=== PATIENT | male | born 1960 | race Two or more races ===

== ENCOUNTER 2019-10-24 13:38 | Inpatient (IN) | payer OTHER ==
[~2019-10-24] VITALS: Ht 170.2 cm; Wt 110.0 kg
[2019-10-24] MEDS ORDERED: ASPirin 81 mg TAB PO ONE (14:00)
[2019-10-24] MEDS ORDERED: AMIODARONE HCL 150 MG in D5W 5% 100 ML IV ONE (14:30)
[2019-10-24] MEDS ORDERED: AMIODARONE 450mg/250ml AE 250 ML IV SCH ×2 (15:00→21:00)
[2019-10-24 15:10] LABS: Basophils # (auto) 0.1 10 ^3/uL (0-0.2); Basophils % (auto) 1.2 % (0.0-2.0); Eosinophils # (auto) 0.3 10 ^3/uL (0-0.8); Eosinophils % (auto) 2.7 % (0.0-7.0); Hematocrit 47.6 % (41.0-53.0); Hemoglobin 16.3 g/dL (13.5-17.5); Lymphocytes # (auto) 2.7 10 ^3/uL (0.4-5.4); Lymphocytes % (auto) 29.1 % (10.0-50.0); Mean Corpuscular Hemoglobin 32.1 pg (28.0-32.0); Mean Corpuscular Hgb Conc. 34.1 g/dL (32.0-36.0); Mean Corpuscular Volume 93.9 fL (80.0-100.0); Monocytes # (auto) 0.6 10 ^3/uL (0-1.3); Monocytes % (auto) 6.5 % (0.0-12.0); Neutrophils # (auto) 5.7 10 ^3/uL (1.6-8.6); Neutrophils % (auto) 60.5 % (37.0-80.0); Nucleated Red Blood Cells % 0.1 %; Platelet Count (auto) 201 10^3/uL (140-450); Red Blood Cells 5.07 10^6/uL (4.5-5.90); Red Cell Distribution Width 13.6 % (11.8-14.3); White Blood Cell 9.4 10^3/uL (4.4-10.8)
[2019-10-24 15:25] LABS: Albumin 3.8 g/dL (3.4-5.0); Anion Gap 6 (5-15); Blood Urea Nitrogen 18 mg/dL (7-18); Calcium 8.7 mg/dL (8.5-10.1); Carbon Dioxide 24 mmol/L (21-32); Chloride 109 mmol/L (98-107); Glucose 105 mg/dL (74-106); Magnesium 2.3 mg/dL (1.6-2.6); Potassium 3.7 mmol/L (3.5-5.1); Sodium 139 mmol/L (136-145)
[2019-10-24 15:27] LABS: INR 1.07 (0.9-1.15)
[2019-10-24 15:31] LABS: Alanine Aminotransferase 42 U/L (16-61); Alkaline Phosphatase 61 U/L (45-117); Aspartate Aminotransferase 29 U/L (15-37); BUN/Creatinine Ratio 20.9; Bilirubin, Total 0.5 mg/dL (0.2-1.0); GFR African American 116 mL/min; GFR Non-African American 96 mL/min; Total Protein 8.2 g/dL (6.4-8.2)
[2019-10-24] MEDS ORDERED: NITROGLYCERIN 0.4 MG SL TAB SL PRN (16:45)
[2019-10-24] MEDS ORDERED: MORPHINE SULF INJ 2 MG/ML SYRINGE 1ML IV PRN (16:45)
[2019-10-24] MEDS ORDERED: SODIUM CHLORIDE 0.9% 1,000 ML IV ONE (18:00)
[2019-10-24 22:00] VITALS: BP 131/76
[2019-10-24] MEDS: ENOXAPARIN SOD 100 MG/1 ML SYRINGE SC SCH (22:28)
[2019-10-24 23:49] VITALS: BP 131/76
[2019-10-25 05:00] VITALS: BP 120/77
[2019-10-25] MEDS ORDERED: OMEG600C2 PO (06:28)
[2019-10-25] MEDS ORDERED: APIX5TAB PO (06:28)
[2019-10-25] MEDS ORDERED: CARV6.25 PO (06:28)
[2019-10-25] MEDS ORDERED: LOSA25TA38 PO (06:28)
[2019-10-25 07:31] LABS: Basophils # (auto) 0.1 10 ^3/uL (0-0.2); Basophils % (auto) 0.9 % (0.0-2.0); Eosinophils # (auto) 0.2 10 ^3/uL (0-0.8); Eosinophils % (auto) 3.7 % (0.0-7.0); Hematocrit 42.9 % (41.0-53.0); Hemoglobin 14.8 g/dL (13.5-17.5); Lymphocytes # (auto) 2.3 10 ^3/uL (0.4-5.4); Lymphocytes % (auto) 38.2 % (10.0-50.0); Mean Corpuscular Hemoglobin 32.4 pg (28.0-32.0); Mean Corpuscular Hgb Conc. 34.5 g/dL (32.0-36.0); Mean Corpuscular Volume 93.9 fL (80.0-100.0); Monocytes # (auto) 0.5 10 ^3/uL (0-1.3); Monocytes % (auto) 7.9 % (0.0-12.0); Neutrophils % (auto) 49.3 % (37.0-80.0); Nucleated Red Blood Cells % 0.1 %; Platelet Count (auto) 165 10^3/uL (140-450); Red Blood Cells 4.56 10^6/uL (4.5-5.90); Red Cell Distribution Width 13.6 % (11.8-14.3); White Blood Cell 6.1 10^3/uL (4.4-10.8)
[2019-10-25 07:53] LABS: BUN/Creatinine Ratio 22.2; Calcium 8.5 mg/dL (8.5-10.1); Potassium 3.7 mmol/L (3.5-5.1)
[2019-10-25 08:00] VITALS: BP 122/70
[2019-10-25 08:57] VITALS: BP 122/70
[2019-10-25 09:12] LABS: INR 1.12 (0.9-1.15); Partial Thromboplastin Time 30.4 sec (23.64-32.05)
[2019-10-25] MEDS: ENOXAPARIN SOD 100 MG/1 ML SYRINGE SC SCH (09:57)
[2019-10-25 13:00] VITALS: BP 124/82
[2019-10-25] MEDS ORDERED: AMIO200T4 PO (15:11)
[2019-10-25 16:32] VITALS: BP 124/82
[2019-10-25 17:00] VITALS: BP 133/91
== END 2019-10-25 18:20 | disposition home or self-care (01) | DRG 309 ==
LOC: ER 13:38 → TELE 13:39 → TELE-WESTW 21:00
PROVIDERS: ADMIT Hospitalist; ATTEND Hospitalist
DX: I48.91 Unspecified atrial fibrillation (principal); D68.59 Other primary thrombophilia; E03.9 Hypothyroidism, unspecified; E66.9 Obesity, unspecified; E78.5 Hyperlipidemia, unspecified; I11.0 Hypertensive heart disease with heart failure; I50.9 Heart failure, unspecified; J44.9 Chronic obstructive pulmonary disease, unspecified; I25.10 Atherosclerotic heart disease of native coronary artery without angina pectoris; Z82.49 Family history of ischemic heart disease and other diseases of the circulatory system; Z90.49 Acquired absence of other specified parts of digestive tract; Z68.35 Body mass index [BMI] 35.0-35.9, adult
CPT/HCPCS: 36415; 71046; 80048; 80053; 83735; 83880; 84443; 84484; 85025; 85610; 85730; 93306; G0378; J7060

== ENCOUNTER 2020-11-03 09:29 | Inpatient (IN) | payer OTHER ==
[~2020-11-03] VITALS: Ht 170.2 cm; Wt 106.0 kg
[~2020-11-03 09:29] MED LIST: AMIO200T4 PO; AMLO-489 PO; APIX5TAB PO; CHLO50TA PO; LOSA-39 PO; OMEG600C2 PO; ROSU10TA16 PO
[2020-11-03] MEDS ORDERED: ceFAZolin 1GM/50ML 100 ML IV ONE (10:08)
[2020-11-03] MEDS ORDERED: EPINEPHrine HCL 1 MG/1 ML AMP ONE (11:48)
[2020-11-03] MEDS ORDERED: TRANEXAMIC ACID 20 ML ONE (11:48)
[2020-11-03] MEDS: VANCOMYCIN HCL 1000 MG VL ONE ×2 (11:49→15:18)
[2020-11-03] MEDS ORDERED: TETRACAINE 1% INJ 2 ML VIAL IJ ONE (11:52)
[2020-11-03] MEDS ORDERED: HYDROmorphone HCL 2 MG/ML VL ONE (12:45)
[2020-11-03] MEDS ORDERED: MIDAZOLAM HCL 2MG/2ML 2ml VIAL (1mg/ml) ONE (12:46)
[2020-11-03] MEDS ORDERED: fentaNYL CITRATE 100 MCG/2 ML VL ONE (12:46)
[2020-11-03] MEDS ORDERED: PROPOFOL 10 MG/ML 20 ML IV ONE ×2 (12:48→15:27)
[2020-11-03] MEDS ORDERED: LIDOCAINE 2% (LOCAL ANESTH.) PF 5ml SDV ONE (12:48)
[2020-11-03] MEDS ORDERED: ONDANSETRON HCL 4 MG/2 ML VIAL ONE ×2 (12:48→16:04)
[2020-11-03] MEDS ORDERED: ROCURONIUM 10MG/ML 10ML VIAL IV ONE (12:49)
[2020-11-03] MEDS: BUPIVACAINE W/ EPINEPH 0.25% INJ 50ML MDV ONE ×2 (13:25→15:18)
[2020-11-03] MEDS ORDERED: MORPHINE SULF(PF) 0.5MG/ML 10ML VIAL ONE (13:25)
[2020-11-03] MEDS ORDERED: KETOROLAC TROMETH 30 MG/ML 1ML VIAL ONE (13:25)
[2020-11-03] MEDS ORDERED: HYDROmorphone HCL 2 MG/ML VL IV PRN ×4 (15:30→21:00)
[2020-11-03] MEDS: HYDROmorphone HCL 2 MG/ML VL ONE ×2 (15:38→16:18)
[2020-11-03] MEDS ORDERED: ONDANSETRON HCL 4 MG/2 ML VIAL IV PRN (16:00)
[2020-11-03] MEDS: D5W/LACTATED RINGERS 1,000 ML IV SCH (16:30)
[2020-11-03] MEDS: ACETAMINOPHEN 325 MG TAB PO SCH (18:00)
[2020-11-03] MEDS: KETOROLAC TROMETH 30 MG/ML 1ML VIAL IV SCH (18:16)
[2020-11-03 22:00] VITALS: BP 114/68
[2020-11-03] MEDS ORDERED: APIXABAN 5 MG TAB PO SCH (22:00)
[2020-11-03] MEDS ORDERED: ASPirin 81 mg TAB PO SCH (22:00)
[2020-11-03] MEDS: ceFAZolin 2 GM in D5W 5% 100 ML IV SCH (22:42)
[2020-11-03] MEDS: AMIODARONE HCL 200 MG TAB PO SCH (22:42)
[2020-11-03] MEDS: oxyCODONE HCL 5MG TAB PO PRN (22:43)
[2020-11-03] MEDS: ATORVASTATIN 20 MG TAB PO SCH (22:43)
[2020-11-03] MEDS: PREGABALIN 25 MG CAP PO SCH (22:43)
[2020-11-04] MEDS: KETOROLAC TROMETH 30 MG/ML 1ML VIAL IV SCH ×3 (00:32→13:32)
[2020-11-04] MEDS: ACETAMINOPHEN 325 MG TAB PO SCH ×5 (00:35→23:27)
[2020-11-04 05:00] VITALS: BP 120/70
[2020-11-04] MEDS: ceFAZolin 2 GM in D5W 5% 100 ML IV SCH (05:07)
[2020-11-04] MEDS: D5W/LACTATED RINGERS 1,000 ML IV SCH ×3 (05:07→21:30)
[2020-11-04 06:58] LABS: Basophils # (auto) 0 10 ^3/uL (0-0.2); Eosinophils # (auto) 0 10 ^3/uL (0-0.8); Hemoglobin 12.1 g/dL (13.5-17.5); Monocytes # (auto) 0.7 10 ^3/uL (0-1.3); Red Blood Cells 3.46 10^6/uL (4.5-5.90)
[2020-11-04 07:01] LABS: Basophils % (auto) 0.4 % (0.0-2.0); Eosinophils % (auto) 0.5 % (0.0-7.0); Hematocrit 33.4 % (41.0-53.0); Mean Corpuscular Hgb Conc. 36.2 g/dL (32.0-36.0); Mean Corpuscular Volume 96.6 fL (80.0-100.0); Neutrophils # (auto) 7.3 10 ^3/uL (1.6-8.6); Neutrophils % (auto) 80.1 % (37.0-80.0); Red Cell Distribution Width 12.2 % (11.8-14.3); White Blood Cell 9.1 10^3/uL (4.4-10.8)
[2020-11-04 07:18] LABS: Calcium 7.9 mg/dL (8.5-10.1); Potassium 3.4 mmol/L (3.5-5.1)
[2020-11-04 07:21] LABS: BUN/Creatinine Ratio 16.7
[2020-11-04 08:00] VITALS: BP 119/69
[2020-11-04] MEDS: oxyCODONE HCL 5MG TAB PO PRN ×4 (09:13→21:23)
[2020-11-04] MEDS: LOSARTAN POTASSIUM 50 MG TAB PO SCH (09:14)
[2020-11-04] MEDS: PREGABALIN 25 MG CAP PO SCH ×2 (09:15→21:58)
[2020-11-04] MEDS: AMIODARONE HCL 200 MG TAB PO SCH ×2 (09:15→21:58)
[2020-11-04] MEDS: amLODIPine BESYLATE 5 MG TAB PO SCH (09:19)
[2020-11-04] MEDS: Chlorthalidone 50 MG PO SCH (10:00)
[2020-11-04 12:00] VITALS: BP 126/70
[2020-11-04 16:00] VITALS: BP 113/83
[2020-11-04] MEDS: ATORVASTATIN 20 MG TAB PO SCH (21:58)
[2020-11-04 22:00] VITALS: BP 114/67
[2020-11-04] MEDS ORDERED: APIXABAN 5 MG TAB PO SCH (22:00)
[2020-11-05] MEDS: oxyCODONE HCL 5MG TAB PO PRN ×6 (01:40→23:29)
[2020-11-05 05:00] VITALS: BP 111/76
[2020-11-05] MEDS: D5W/LACTATED RINGERS 1,000 ML IV SCH (05:45)
[2020-11-05] MEDS: ACETAMINOPHEN 325 MG TAB PO SCH ×4 (05:46→23:29)
[2020-11-05 06:37] LABS: Basophils # (auto) 0 10 ^3/uL (0-0.2); Lymphocytes # (auto) 1.6 10 ^3/uL (0.4-5.4); Monocytes # (auto) 0.6 10 ^3/uL (0-1.3); White Blood Cell 8.6 10^3/uL (4.4-10.8)
[2020-11-05 06:39] LABS: Basophils % (auto) 0.4 % (0.0-2.0); Eosinophils # (auto) 0 10 ^3/uL (0-0.8); Eosinophils % (auto) 0.5 % (0.0-7.0); Hematocrit 31.9 % (41.0-53.0); Hemoglobin 11.5 g/dL (13.5-17.5); Lymphocytes % (auto) 18.7 % (10.0-50.0); Mean Corpuscular Hemoglobin 35.2 pg (28.0-32.0); Mean Corpuscular Hgb Conc. 35.9 g/dL (32.0-36.0); Mean Corpuscular Volume 97.9 fL (80.0-100.0); Monocytes % (auto) 6.9 % (0.0-12.0); Neutrophils # (auto) 6.4 10 ^3/uL (1.6-8.6); Neutrophils % (auto) 73.5 % (37.0-80.0); Nucleated Red Blood Cells % 0.1 %; Red Blood Cells 3.26 10^6/uL (4.5-5.90); Red Cell Distribution Width 12.3 % (11.8-14.3)
[2020-11-05] MEDS: AMIODARONE HCL 200 MG TAB PO SCH ×2 (09:13→21:55)
[2020-11-05] MEDS: amLODIPine BESYLATE 5 MG TAB PO SCH (09:13)
[2020-11-05] MEDS: Chlorthalidone 50 MG PO SCH (09:14)
[2020-11-05] MEDS: PREGABALIN 25 MG CAP PO SCH ×2 (09:14→21:56)
[2020-11-05] MEDS: LOSARTAN POTASSIUM 50 MG TAB PO SCH (09:14)
[2020-11-05 09:27] VITALS: BP 99/58
[2020-11-05 13:00] VITALS: BP 145/69
[2020-11-05 16:43] VITALS: BP 120/62
[2020-11-05] MEDS: SULFAMETHOX W/TRIMETH(800/160MG) DS TAB PO SCH (21:55)
[2020-11-05] MEDS: ATORVASTATIN 20 MG TAB PO SCH (21:55)
[2020-11-05] MEDS: MAGNESIUM OXIDE 400 MG TAB PO SCH (21:56)
[2020-11-05 22:00] VITALS: BP 114/69
[2020-11-06 05:00] VITALS: BP 115/57
[2020-11-06] MEDS: ACETAMINOPHEN 325 MG TAB PO SCH ×2 (06:48→12:03)
[2020-11-06] MEDS: oxyCODONE HCL 5MG TAB PO PRN (06:49)
[2020-11-06 08:30] VITALS: BP 131/68
[2020-11-06] MEDS: MAGNESIUM OXIDE 400 MG TAB PO SCH (09:15)
[2020-11-06] MEDS: SULFAMETHOX W/TRIMETH(800/160MG) DS TAB PO SCH (09:15)
[2020-11-06] MEDS: PREGABALIN 25 MG CAP PO SCH (09:16)
[2020-11-06] MEDS: LOSARTAN POTASSIUM 50 MG TAB PO SCH (09:16)
[2020-11-06] MEDS: amLODIPine BESYLATE 5 MG TAB PO SCH (09:16)
[2020-11-06] MEDS: AMIODARONE HCL 200 MG TAB PO SCH (09:16)
[2020-11-06] MEDS: Chlorthalidone 50 MG PO SCH (09:17)
[2020-11-06 12:30] VITALS: BP 130/74
== END 2020-11-06 16:45 | disposition home health service (06) | DRG 470 ==
LOC: SUR 09:29 → OVERFLOW 15:30 → CENTRAL 17:19
PROVIDERS: ADMIT Orthopaedic Surgery; ATTEND Orthopaedic Surgery
PROC: 0SRD069 Replacement of Left Knee Joint with Oxidized Zirconium on Polyethylene Synthetic Substitute, Cemented, Open Approach (ICD-10-PCS; principal; 2020-11-03 12:39)
DX: M17.12 Unilateral primary osteoarthritis, left knee (principal); M24.562 Contracture, left knee; M25.762 Osteophyte, left knee; M21.162 Varus deformity, not elsewhere classified, left knee; E66.9 Obesity, unspecified; Z20.822 Contact with and (suspected) exposure to COVID-19; I10 Essential (primary) hypertension; I48.0 Paroxysmal atrial fibrillation; Z82.49 Family history of ischemic heart disease and other diseases of the circulatory system; Z82.5 Family history of asthma and other chronic lower respiratory diseases; Z83.3 Family history of diabetes mellitus; Z79.899 Other long term (current) drug therapy; Z68.36 Body mass index [BMI] 36.0-36.9, adult
CPT/HCPCS: 36415; 73562; 80048; 83735; 85025; 86850; 86900; 86901; 97110; 97116; 97163; 97530; G0378; J0171; J0690; J1885; J2001; J2250; J2405; J2704; J7060

== ENCOUNTER 2022-11-29 08:53 | Inpatient (IN) | payer OTHER ==
[~2022-11-29] VITALS: Ht 170.2 cm; Wt 114.0 kg
[2022-11-29] VITALS (7 sets, daily range): BP systolic 107–123; BP diastolic 58–66; PULSE 64–68; RESP 15–17; TEMP 97.9–98.3; O2SAT 97–100
[~2022-11-29 08:53] MED LIST changes: +AMIO200T13 PO; -AMIO200T4 PO; -AMLO-489 PO; +AMLO1TAB22 PO; +BACL20TA PO; +CHOL100067 PO; +ERGO400T PO; +HYDR-4297 PO; -LOSA-39 PO; +LOSA100T58 PO; +MELO-335 PO; -OMEG600C2 PO; +TRAZ-228 PO
[2022-11-29] MEDS ORDERED: ceFAZolin 1GM/50ML 100 ML IV ONE (11:17)
[2022-11-29] MEDS ORDERED: fentaNYL CITRATE 100 MCG/2 ML VL ONE ×3 (11:19→14:39)
[2022-11-29] MEDS ORDERED: HYDROmorphone HCL 2 MG/ML VL/or syr ONE ×2 (11:19→15:01)
[2022-11-29] MEDS ORDERED: MIDAZOLAM HCL 2MG/2ML 2ml VIAL (1mg/ml) ONE (11:19)
[2022-11-29] MEDS ORDERED: GLYCOPYRROLATE 0.2 MG/ML 1ML VIAL ONE (11:20)
[2022-11-29] MEDS ORDERED: DexAMETHasone SOD PHOS 10MG/1ML VIAL INJ ONE (11:20)
[2022-11-29] MEDS ORDERED: LIDOCAINE 2% (LOCAL ANESTH.) PF 5ml SDV ONE (11:20)
[2022-11-29] MEDS ORDERED: ONDANSETRON HCL 4 MG/2 ML VIAL ONE (11:20)
[2022-11-29] MEDS ORDERED: TRANEXAMIC ACID 20 ML ONE (12:29)
[2022-11-29] MEDS ORDERED: HYDROCORTISONE SOD SUCC 100 MG/2ML INJ VIAL ONE (12:30)
[2022-11-29] MEDS ORDERED: MINERAL OIL TOPICAL 10ml TOP ONE (14:10)
[2022-11-29] MEDS ORDERED: MILK OF MAGNESIA 30ML SUSP PO PRN (15:30)
[2022-11-29] MEDS ORDERED: ceFAZolin 1GM/50ML 50 ML IV SCH (15:30)
[2022-11-29] MEDS ORDERED: MORPHINE SULFATE INJ 2 MG/ml SYRG IV PRN (15:30)
[2022-11-29] MEDS ORDERED: ONDANSETRON HCL 4 MG/2 ML VIAL IV PRN ×2 (15:30→15:45)
[2022-11-29] MEDS ORDERED: DOCUSATE SOD 100 MG CAP PO PRN (15:30)
[2022-11-29] MEDS ORDERED: NITROGLYCERIN 0.4 MG SL TAB SL PRN (15:30)
[2022-11-29] MEDS ORDERED: HYDROcodone-ACET 10/325MG TAB PO PRN (15:30)
[2022-11-29] MEDS: HYDROmorphone HCL 2 MG/ML VL/or syr IV PRN ×4 (16:05→17:15)
[2022-11-29] MEDS: CYCLOBENZAPRINE HCL 10 MG TAB PO SCH ×2 (16:05→22:26)
[2022-11-29] MEDS: D5W/SOD CHLO 0.9% 1,000 ML IV SCH (18:31)
[2022-11-29] MEDS: ACETAMINOPHEN 325 MG TAB PO PRN (18:42)
[2022-11-29] MEDS: MORPHINE SULFATE INJ 2 MG/ml SYRG IV PRN (20:16)
[2022-11-29] MEDS: DOCUSATE SOD 100 MG CAP PO SCH (22:26)
[2022-11-29] MEDS: ceFAZolin 1GM/50ML 50 ML IV SCH (22:33)
[2022-11-30] VITALS (13 sets, daily range): BP systolic 120–140; BP diastolic 55–77; PULSE 48–71; RESP 16–20; TEMP 97.5–98.6; O2SAT 98–100
[2022-11-30] MEDS: ACETAMINOPHEN 325 MG TAB PO PRN ×3 (00:56→15:31)
[2022-11-30] MEDS ORDERED: IBUPROFEN 600 MG TAB PO PRN (03:30)
[2022-11-30] MEDS: HYDROcodone-ACET 10/325MG TAB PO PRN ×3 (04:42→16:52)
[2022-11-30] MEDS: ceFAZolin 1GM/50ML 50 ML IV SCH (04:50)
[2022-11-30] MEDS: D5W/SOD CHLO 0.9% 1,000 ML IV SCH ×2 (04:51→11:30)
[2022-11-30] MEDS: DOCUSATE SOD 100 MG CAP PO SCH ×2 (08:53→21:46)
[2022-11-30 11:13] LABS: Basophils # (auto) 0 10 ^3/uL (0-0.2); Basophils % (auto) 0.3 % (0.0-2.0); Eosinophils # (auto) 0 10 ^3/uL (0-0.8); Eosinophils % (auto) 0.4 % (0.0-7.0); Hematocrit 29.5 % (41.0-53.0); Hemoglobin 10.1 g/dL (13.5-17.5); Lymphocytes # (auto) 1.6 10 ^3/uL (0.4-5.4); Lymphocytes % (auto) 17.5 % (10.0-50.0); Mean Corpuscular Hemoglobin 33.8 pg (28.0-32.0); Mean Corpuscular Hgb Conc. 34.1 g/dL (32.0-36.0); Mean Corpuscular Volume 98.9 fL (80.0-100.0); Monocytes # (auto) 0.7 10 ^3/uL (0-1.3); Monocytes % (auto) 7.8 % (0.0-12.0); Neutrophils # (auto) 6.8 10 ^3/uL (1.6-8.6); Nucleated Red Blood Cells % 0.1 %; Red Blood Cells 2.98 10^6/uL (4.5-5.90); Red Cell Distribution Width 13.3 % (11.8-14.3); White Blood Cell 9.2 10^3/uL (4.4-10.8)
[2022-11-30 11:25] LABS: Chloride 105 mmol/L (98-107); Potassium 3.7 mmol/L (3.5-5.1); Sodium 137 mmol/L (136-145)
[2022-11-30 11:27] LABS: Calcium 8.2 mg/dL (8.5-10.1)
[2022-11-30 11:31] LABS: BUN/Creatinine Ratio 18.8 (10.0-20.0); Blood Urea Nitrogen 13 mg/dL (9-23); Glucose 117 mg/dL (74-106)
[2022-11-30] MEDS: CYCLOBENZAPRINE HCL 10 MG TAB PO SCH ×2 (13:53→21:46)
[2022-11-30] MEDS: traZODone HCL 50 MG TAB PO SCH (16:51)
[2022-11-30] MEDS: MORPHINE SULFATE INJ 2 MG/ml SYRG IV PRN (18:37)
[2022-11-30] MEDS: ATORVASTATIN 20 MG TAB PO SCH (21:45)
[2022-11-30] MEDS: hydrALAZINE HCL 25 MG TAB PO SCH (21:46)
[2022-12-01] VITALS (10 sets, daily range): BP systolic 103–135; BP diastolic 50–67; PULSE 57–78; RESP 14–20; TEMP 98.2–99.3; O2SAT 97–100
[2022-12-01] MEDS: MORPHINE SULFATE INJ 2 MG/ml SYRG IV PRN ×3 (00:01→21:46)
[2022-12-01] MEDS: HYDROcodone-ACET 10/325MG TAB PO PRN ×3 (01:40→18:40)
[2022-12-01] MEDS: D5W/SOD CHLO 0.9% 1,000 ML IV SCH ×3 (03:35→17:15)
[2022-12-01] MEDS: CYCLOBENZAPRINE HCL 10 MG TAB PO SCH ×3 (05:39→21:45)
[2022-12-01] MEDS: ACETAMINOPHEN 325 MG TAB PO PRN (05:45)
[2022-12-01] MEDS: hydrALAZINE HCL 25 MG TAB PO SCH ×2 (09:05→23:35)
[2022-12-01] MEDS: DOCUSATE SOD 100 MG CAP PO SCH ×2 (09:05→21:45)
[2022-12-01] MEDS: LOSARTAN POTASSIUM 50 MG TAB PO SCH (09:06)
[2022-12-01] MEDS: amLODIPine BESYLATE 5 MG TAB PO SCH (09:06)
[2022-12-01] MEDS: MELOXICAM 15 MG PO SCH (09:23)
[2022-12-01] MEDS: traZODone HCL 50 MG TAB PO SCH (18:01)
[2022-12-01] MEDS: ATORVASTATIN 20 MG TAB PO SCH (21:45)
[2022-12-02] VITALS (12 sets, daily range): BP systolic 114–130; BP diastolic 61–70; PULSE 52–69; RESP 18–20; TEMP 98.1–98.9; O2SAT 96–100
[2022-12-02] MEDS: D5W/SOD CHLO 0.9% 1,000 ML IV SCH ×3 (03:30→23:30)
[2022-12-02] MEDS: HYDROcodone-ACET 10/325MG TAB PO PRN ×3 (04:39→19:39)
[2022-12-02] MEDS: CYCLOBENZAPRINE HCL 10 MG TAB PO SCH ×3 (06:01→21:39)
[2022-12-02] MEDS: DOCUSATE SOD 100 MG CAP PO SCH ×2 (09:34→21:40)
[2022-12-02] MEDS: amLODIPine BESYLATE 5 MG TAB PO SCH (09:35)
[2022-12-02] MEDS: hydrALAZINE HCL 25 MG TAB PO SCH ×2 (09:36→21:40)
[2022-12-02] MEDS: LOSARTAN POTASSIUM 50 MG TAB PO SCH (09:36)
[2022-12-02] MEDS: MELOXICAM 15 MG PO SCH (09:38)
[2022-12-02] MEDS: MORPHINE SULFATE INJ 2 MG/ml SYRG IV PRN ×3 (09:52→21:41)
[2022-12-02] MEDS: traZODone HCL 50 MG TAB PO SCH (17:33)
[2022-12-02] MEDS: ATORVASTATIN 20 MG TAB PO SCH (21:39)
[2022-12-03] VITALS (10 sets, daily range): BP systolic 113–157; BP diastolic 65–87; PULSE 64–94; RESP 18–19; TEMP 97.9–98.8; O2SAT 96–100
[2022-12-03] MEDS: MORPHINE SULFATE INJ 2 MG/ml SYRG IV PRN ×4 (02:04→17:30)
[2022-12-03] MEDS: HYDROcodone-ACET 10/325MG TAB PO PRN ×4 (03:06→21:25)
[2022-12-03] MEDS: CYCLOBENZAPRINE HCL 10 MG TAB PO SCH ×3 (05:33→21:26)
[2022-12-03] MEDS: D5W/SOD CHLO 0.9% 1,000 ML IV SCH ×2 (07:27→21:26)
[2022-12-03] MEDS: DOCUSATE SOD 100 MG CAP PO SCH ×2 (09:07→21:25)
[2022-12-03] MEDS: amLODIPine BESYLATE 5 MG TAB PO SCH (09:07)
[2022-12-03] MEDS: hydrALAZINE HCL 25 MG TAB PO SCH ×2 (09:08→21:26)
[2022-12-03] MEDS: LOSARTAN POTASSIUM 50 MG TAB PO SCH (09:08)
[2022-12-03] MEDS: MELOXICAM 15 MG PO SCH (09:11)
[2022-12-03] MEDS: traZODone HCL 50 MG TAB PO SCH (18:31)
[2022-12-03] MEDS: ATORVASTATIN 20 MG TAB PO SCH (21:25)
[2022-12-04] VITALS (9 sets, daily range): BP systolic 132–154; BP diastolic 66–76; PULSE 69–89; RESP 17–19; TEMP 37.1; O2SAT 93–100
[2022-12-04] MEDS: D5W/SOD CHLO 0.9% 1,000 ML IV SCH ×2 (05:28→15:30)
[2022-12-04] MEDS: HYDROcodone-ACET 10/325MG TAB PO PRN ×2 (05:28→11:11)
[2022-12-04] MEDS: CYCLOBENZAPRINE HCL 10 MG TAB PO SCH ×2 (05:28→14:31)
[2022-12-04] MEDS: MELOXICAM 15 MG PO SCH (10:00)
[2022-12-04] MEDS: DOCUSATE SOD 100 MG CAP PO SCH (10:21)
[2022-12-04] MEDS: amLODIPine BESYLATE 5 MG TAB PO SCH (10:23)
[2022-12-04] MEDS: LOSARTAN POTASSIUM 50 MG TAB PO SCH (10:23)
[2022-12-04] MEDS: hydrALAZINE HCL 25 MG TAB PO SCH (10:24)
== END 2022-12-04 16:35 | disposition home health service (06) | DRG 516 ==
LOC: SUR 08:53 → TELE 15:28 → TELE-CENTR 18:20
PROVIDERS: ADMIT Orthopaedic Surgery; ATTEND Internal Medicine
PROC: 01NB0ZZ Release Lumbar Nerve, Open Approach (ICD-10-PCS; 2022-11-29)
PROC: 0SW004Z Revision of Internal Fixation Device in Lumbar Vertebral Joint, Open Approach (ICD-10-PCS; 2022-11-29)
PROC: 5A09357 Assistance with Respiratory Ventilation, Less than 24 Consecutive Hours, Continuous Positive Airway Pressure (ICD-10-PCS; principal; 2022-11-30)
PROC: 5A09357 Assistance with Respiratory Ventilation, Less than 24 Consecutive Hours, Continuous Positive Airway Pressure (ICD-10-PCS; 2022-12-01)
PROC: 5A09357 Assistance with Respiratory Ventilation, Less than 24 Consecutive Hours, Continuous Positive Airway Pressure (ICD-10-PCS; 2022-12-02)
PROC: 5A09357 Assistance with Respiratory Ventilation, Less than 24 Consecutive Hours, Continuous Positive Airway Pressure (ICD-10-PCS; 2022-12-03)
DX: M48.061 Spinal stenosis, lumbar region without neurogenic claudication (principal); E66.2 Morbid (severe) obesity with alveolar hypoventilation; M96.1 Postlaminectomy syndrome, not elsewhere classified; I10 Essential (primary) hypertension; E11.9 Type 2 diabetes mellitus without complications; E78.5 Hyperlipidemia, unspecified; F51.04 Psychophysiologic insomnia; I48.0 Paroxysmal atrial fibrillation; M54.16 Radiculopathy, lumbar region; M51.36 Other intervertebral disc degeneration, lumbar region; Z98.1 Arthrodesis status; Z83.3 Family history of diabetes mellitus; Z82.5 Family history of asthma and other chronic lower respiratory diseases; Z82.49 Family history of ischemic heart disease and other diseases of the circulatory system; Z79.01 Long term (current) use of anticoagulants; Z68.38 Body mass index [BMI] 38.0-38.9, adult
CPT/HCPCS: 36415; 72100; 76000; 80048; 85025; 86850; 86900; 86901; 94660; 97163; G0378; J0690; J1100; J2001; J2250; J2405; J7042

== ENCOUNTER 2023-09-09 06:47 | Day surgery (SDC) | payer OTHER ==
[2023-09-09] VITALS (8 sets, daily range): BP systolic 95–154; BP diastolic 62–91; PULSE 45–61; RESP 12–20; TEMP 98; O2SAT 96–97
[~2023-09-09] VITALS: Ht 170.2 cm; Wt 111.1 kg
[~2023-09-09 06:47] MED LIST changes: -AMIO200T13 PO; -CHOL100067 PO; -ERGO400T PO; -HYDR-4297 PO; +LOSA-535 PO; -LOSA100T58 PO; -MELO-335 PO; +MELO15TA29 PO; +METO25TA93 PO; +TOPI50TA53 PO
[2023-09-09] MEDS ORDERED: IODIXANOL 320MG/ML 100ML BTL IV ONE ×2 (07:50→10:09)
[2023-09-09] MEDS ORDERED: HEPARIN SODIUM (PORCINE) 5000 UNITS/ML 1ML VIAL ONE (10:03)
[2023-09-09] MEDS ORDERED: VERAPAMIL 2.5MG/ML INJ 2ML VIAL IV ONE (10:03)
[2023-09-09] MEDS ORDERED: fentaNYL CITRATE 100 MCG/2 ML VL ONE (10:03)
[2023-09-09] MEDS ORDERED: ANGIOMAX 250 MG VIAL IV ONE (10:03)
[2023-09-09] MEDS ORDERED: MIDAZOLAM HCL 2MG/2ML 2ml VIAL (1mg/ml) ONE (10:04)
[2023-09-09] MEDS ORDERED: SODIUM CHL 0.9% 0 ML ONE (10:04)
[2023-09-09] MEDS ORDERED: LIDOCAINE 2%HCL (LOCAL ANESTH.) INJ 20ML MDV ONE (10:13)
[2023-09-09] MEDS ORDERED: ATROPINE SULF 1 MG/10ml SYR ONE (10:18)
[2023-09-09] MEDS: ACETAMINOPHEN 325 MG TAB PO ONE (12:04)
[2023-09-09] MEDS ORDERED: ACETAMINOPHEN 325 MG TAB PO ONE (12:07)
== END 2023-09-09 13:15 | disposition home or self-care (01) ==
LOC: CATH 06:47
PROVIDERS: ATTEND Internal Medicine
DX: R94.39 Abnormal result of other cardiovascular function study (principal); I25.118 Atherosclerotic heart disease of native coronary artery with other forms of angina pectoris; R07.9 Chest pain, unspecified; E78.5 Hyperlipidemia, unspecified; I48.92 Unspecified atrial flutter; I72.9 Aneurysm of unspecified site; J44.9 Chronic obstructive pulmonary disease, unspecified; G47.30 Sleep apnea, unspecified; Z79.899 Other long term (current) drug therapy; Z88.8 Allergy status to other drugs, medicaments and biological substances; Z82.49 Family history of ischemic heart disease and other diseases of the circulatory system; Z82.5 Family history of asthma and other chronic lower respiratory diseases; Z83.3 Family history of diabetes mellitus
CPT/HCPCS: 93458; C1894; J1644; J2250; J3010; Q9967; 99152